=== PATIENT | male | born 1995 | race Caucasian/White ===

== ENCOUNTER 2019-06-23 17:50 | Emergency (ER) | payer SELFPAY ==
[2019-06-23 18:14] VITALS: BP 125/75
--- NOTE | 2019-06-23 18:20 | UC ---
Throat Pain/Nasal Yves HPI - HPI Summary HPI Summary: 23 yo male presents with flu-like symptoms. He tells me that for 4 days ago he developed sore throat, fatigue, body aches, and dry cough. He saw [facility] yesterday and tells me that he had a CXR that was normal and they dx'd him with a viral illness and recommended OTC supportive care. He is here today because his symptoms have not improved. He has been taking tylenol, ibuprofen, mucinex, and dayquill with mild intermittent relief. He is a [employer] student and has been exposed to many classmates with URIs and the flu. He has felt feverish, but has not taken his temperature. He has a decreased appetite, but is eating/drinking and tolerating po without issue. Denies SOB, chest pain, abdominal pain, vomiting, back or neck pain, rash. - History of Current Complaint Chief Complaint: UCRespiratory Stated Complaint: WANTS FLU SWAP AND MONO TEST Time Seen by Provider: 06/23/19 18:20 Hx Obtained From: Patient Onset/Duration: Sudden Onset Severity: Moderate Pain Intensity: 7 Pain Scale Used: 0-10 Numeric - Allergies/Home Medications Allergies/Adverse Reactions: Allergies Allergy/AdvReac Type Severity Reaction Status Date / Time No Known Allergies Allergy Verified 06/23/19 18:14 Home Medications: Home Medications Acetaminophen [Tylenol Extra Strength] 1,000 mg PO PRN 06/23/19 [History] Dextroamphetamine/Amphetamine [Adderall 20 mg Tablet] 1 tab PO DAILY 06/23/19 [ History Confirmed 06/23/19] First Mouth Wash* 06/23/19 [History] Fluticasone NASAL SPRAY 50MCG* [Flonase NASAL SPRAY 50MCG*] PRN 06/23/19 [ History] Ibuprofen TAB* [Advil TAB*] 600 mg PO Q6H PRN 06/23/19 [History Confirmed ] guaiFENesin ER TAB [Mucinex*] 600 mg PO BID PRN 06/23/19 [History Confirmed ] PMH/Surg Hx/FS Hx/Imm Hx - Additional Past Medical History Additional PMH: ADHD - Surgical History Surgical History: Yes Surgery Procedure, Year, and Place: orthopedic surgery - Family History Known Family History: Positive: None - Social History Occupation: Student Lives: Dormitory/Roommates Alcohol Use: Occasionally Substance Use Type: None Smoking Status (MU): Never Smoked Tobacco Review of Systems All Other Systems Reviewed And Are Negative: No Constitutional: Positive: Fatigue, Other - Body aches Skin: Positive: Negative Eyes: Positive: Negative ENT: Positive: Sore Throat Respiratory: Positive: Negative Cardiovascular: Positive: Negative Gastrointestinal: Positive: Negative Neurological/Mental Status: Positive: Negative Psychological: Positive: Negative Physical Exam - Summary Physical Exam Summary: GENERAL: NAD. WDWN. No pain distress. SKIN: No rashes, sores, lesions, or open wounds. HEENT: Head: AT/NC Eyes: EOM intact. Conjunctiva clear without inflammation or discharge. Ears: Hearing grossly normal. TMs intact, no bulging, erythema, or edema. Nose: Nasal mucosa pink and moist. NTTP maxillary and frontal sinus. Throat: Posterior oropharynx without exudates, erythema, or tonsillar enlargement. Uvula midline. NECK: Supple. Nontender. No lymphadenopathy. CHEST: CTAB. No r/r/w. No accessory muscle use. Breathing comfortably and in no distress. CV: RRR. Pulses intact. Cap refill <2seconds NEURO: Alert. PSYCH: Age appropriate behavior. Triage Information Reviewed: Yes Vital Signs: Initial Vital Signs Temp 98.3 F 06/23/19 18:11 Pulse 86 06/23/19 18:11 Resp 16 06/23/19 18:11 BP 125/75 06/23/19 18:11 Pulse Ox 100 06/23/19 18:11 Laboratory Tests 06/23/19 06/23/19 18:24 19:01 Influenza B (Rapid) Positive H Group A Strep Rapid Negative Acetaminophen [Tylenol Extra Strength] 1,000 mg PO PRN 06/23/19 [History] Dextroamphetamine/Amphetamine [Adderall 20 mg Tablet] 1 tab PO DAILY 06/23/19 [ History Confirmed 06/23/19] First Mouth Wash* 06/23/19 [History] Fluticasone NASAL SPRAY 50MCG* [Flonase NASAL SPRAY 50MCG*] PRN 06/23/19 [ History] Ibuprofen TAB* [Advil TAB*] 600 mg PO Q6H PRN 06/23/19 [History Confirmed ] Oseltamivir CAP* [Tamiflu CAP*] 75 mg PO BID #10 cap 06/23/19 [Rx] guaiFENesin ER TAB [Mucinex*] 600 mg PO BID PRN 06/23/19 [History Confirmed ] Vital Signs Reviewed: Yes Throat Pain/Nasal Course/Dx - Course Course Of Treatment: POC strep negative. POC flu positive. Pt requesting tamiflu. - Differential Dx/Diagnosis Provider Diagnosis: Influenza Discharge ED - Sign-Out/Discharge Documenting (check all that apply): Patient Departure All imaging exams completed and their final reports reviewed: No Studies - Discharge Plan Condition: Stable Disposition: HOME Prescriptions: Oseltamivir CAP* [Tamiflu CAP*] 75 mg PO BID #10 cap Patient Education Materials: Influenza (ED) Referrals: No Primary Care Phys,NOPCP [Primary Care Provider] - Additional Instructions: If you develop a fever, shortness of breath, chest pain, new or worsening symptoms - please call your PCP or go to the ED immediately. Your blood pressure was high at todays visit. Please see your primary provider within 4 weeks for recheck and re-evaluation. Most people with the flu recover within one to two weeks without treatment. However, serious complications of the flu can occur. Go to the ER immediately if you: -- You feel short of breath or have trouble breathing -- You have pain or pressure in your chest or stomach -- You have signs of being dehydrated, such as dizziness when standing or not passing urine -- You feel confused -- You cannot stop vomiting or you cannot drink enough fluids There are several groups of people who are at increased risk for flu complications. These include women, young children (<5 years of age and especially <2 years of age), people older than 65 years of age, and people with certain diseases such as chronic lung disease (such as asthma), heart disease, diabetes, immunosuppressing conditions (such as HIV infection or transplantation), and some other diseases. Treat symptoms Treating the symptoms of influenza can help you to feel better but will not make the flu go away faster. -- Rest until the flu is fully resolved, especially if the illness has been severe. -- Fluids Drink enough fluids so that you do not become dehydrated. One way to wood buffer if you are drinking enough is to look at the color of your urine. Normally, urine should be light yellow to nearly colorless. If you are drinking enough, you should pass urine every three to five hours. -- Acetaminophen (sample brand name: Tylenol) can relieve fever, headache, and muscle aches. Aspirin and medicines that include aspirin (eg, bismuth subsalicylate [sample brand name: Pepto-Bismol]) are not recommended for children under 18 because aspirin can lead to a serious disease called Yimi syndrome. -- Cough medicines are not usually helpful; cough usually resolves without treatment. We do not recommend cough or cold medicine for children under age 6 years. Antiviral treatment Antiviral medicines can be used to treat or prevent influenza. When used as a treatment, the medicine does not eliminate flu symptoms, although it can reduce the severity and duration of symptoms by about one day. Not every person with influenza needs an antiviral medicine, but some people do; the decision is based upon several factors. If you are severely ill and/or have risk factors for developing complications of influenza, you will need an antiviral agent. People who are only mildly ill and have no risk factors for complications usually do not need to be treated with antiviral medication. - Billing Disposition and Condition Condition: STABLE Disposition: Home
[2019-06-23 19:04] LABS: Influenza B Molecular POSITIVE (Negative)
== END 2019-06-23 19:20 | disposition home or self-care (01) ==
LOC: UCEAST 17:50
DX: J11.1 Influenza due to unidentified influenza virus with other respiratory manifestations (principal); F90.9 Attention-deficit hyperactivity disorder, unspecified type
CPT/HCPCS: 87651; 99202; G0463